=== PATIENT | female | born 1930 | race Caucasian/White ===

== ENCOUNTER 2016-12-27 13:00 | Emergency (ER) | payer MEDICARE, BC ==
[~2016-12-27] VITALS: Ht 160 cm; Wt 81.6 kg
--- NOTE | ~2016-12-27 | CR106 ---
[facility] A Service of [facility] & [facility] RADIOLOGY TEXT RESULTS PATIENT: WARD BOWDEN LOCATION: [facility] : 30 UNIT #: [id number] AGE: [address]: Kathryn Frances APRN SEX: F ORDER DR: [id number] [facility] [address] [place], [place] [address] [id number] E MR#: [id number] Acc #: [id number] NAME: WARD BOWDEN : 1930 SEX: F STUDY DATE/TIME: 12/27/2016 14:36 UNIT: [facility] ROOM: STUDY DESCRIPTION: CR Femur 2 Views Lt Attending Physician: Kathryn Frances A.P.R.N. Ordering Physician: Garcia Wheeler M.D. Primary Care Physician: Generic Doctor Not In System MEDICAL IMAGING REPORT This report is preliminary unless electronic signature is present EXAM Left femur. INDICATION Fall with left knee and femur pain. Patient fell today. FINDINGS AP and lateral views of the left femur were obtained. 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 The study is limited by the patient's size. No fracture is visible. IMPRESSION Previous left knee replacement. No fracture is visible. Dictated by... Isauro Garcia M.D. THIS IS AN ELECTRONICALLY VERIFIED REPORT Isauro Garcia M.D. at 12/27/2016 4:30 PM FEL/jace TD: 12/27/2016 16:20 JOB #: [id number] MEDICAL IMAGING REPORT Page 1 of 1 COPY
--- NOTE | ~2016-12-27 | CR169 ---
[facility] A Service of [facility] & [facility] RADIOLOGY TEXT RESULTS PATIENT: WARD BOWDEN LOCATION: [facility] : 30 UNIT #: [id number] AGE: [address]: Kathryn Frances APRN SEX: F ORDER DR: [id number] [facility] [address] [place], [place] [address] [id number] E MR#: [id number] Acc #: [id number] NAME: WARD BOWDEN : 1930 SEX: F STUDY DATE/TIME: 12/27/2016 14:36 UNIT: [facility] ROOM: STUDY DESCRIPTION: CR Knee 2 Views Lt Attending Physician: Kathryn Frances A.P.R.N. Ordering Physician: Ed Jackson Wheeler M.D. Primary Care Physician: Generic Doctor Not In System MEDICAL IMAGING REPORT This report is preliminary unless electronic signature is present EXAM Left knee 12/27/2016 INDICATION Knee pain after a fall today. FINDINGS 2 views of the left knee were obtained. The patient is status post knee arthroplasty. Hardware shows normal alignment. The joint effusion is present. No acute fracture. IMPRESSION Arthroplasty hardware intact. No fracture. There is a small joint effusion. Dictated by... Georgi Loaiza Jr., M.D. THIS IS AN ELECTRONICALLY VERIFIED REPORT Georgi Loaiza Jr., M.D. at 12/27/2016 10:34 PM DEVYN/josue TD: 12/27/2016 16:24 JOB #: [id number] MEDICAL IMAGING REPORT Page 1 of 1 COPY
== END 2016-12-27 19:00 | disposition home or self-care (01) ==
LOC: CED 13:00 → CFTX 13:00
DX: S83.92XA Sprain of unspecified site of left knee, initial encounter (principal); I10 Essential (primary) hypertension; Z96.653 Presence of artificial knee joint, bilateral; W18.30XA Fall on same level, unspecified, initial encounter; Y92.009 Unspecified place in unspecified non-institutional (private) residence as the place of occurrence of the external cause
CPT/HCPCS: 73552; 73560; 97161; 99283; G8978-GP; G8979-GP; G8980-GP